=== PATIENT | female | born 1935 | race Caucasian/White ===

== ENCOUNTER 2018-02-11 09:28 | Emergency (ER) | payer MEDICARE, MEDICAID ==
[2018-02-11 10:03] VITALS: TEMP 97; O2SAT 98
[2018-02-11 11:00] LABS: BASO # 0.1 K/uL (0.0-0.2); BASO % 0.7 % (0.0-2.0); EOS # 0.3 K/uL (0.0-0.7); EOS % 3.2 % (0.0-4.0); HEMOGLOBIN 13.5 g/dL (12.0-16.0); LYMPH % 36.8 % (20.0-40.0); MEAN CELL VOLUME 87.7 fl (81.0-99.0); MEAN CORPUSCULAR HEMOGLOBIN 29.5 pg (27.0-31.0); MEAN CORPUSCULAR HGB CONC 33.6 g/dL (33.0-37.0); MEAN PLATELET VOLUME 9.3 fl (7.2-11.7); MONO # 0.4 K/uL (0.0-0.8); MONO % 5.6 % (0.0-10.0); NEUT # 4.3 K/uL (1.8-7.0); NEUT % 53.7 % (50.0-75.0); NRBC % 0.1 % (0.0-0.0); RBC 4.59 Mil/uL (3.80-5.20); RED CELL DISTRIBUTION WIDTH 14.4 % (11.5-14.5)
[2018-02-11 11:06] LABS: ALBUMIN 4.2 g/dL (3.5-5.0); ALT/SGPT 35 U/L (9-52); AST/SGOT 36 U/L (14-36); BLOOD UREA NITROGEN 11 mg/dl (7-17); CALCIUM 9.7 mg/dL (8.4-10.2); GFR AFRICAN-AMERICAN > 60; GFR NON-AFRICAN AMERICAN > 60; LIPASE 222 U/L (23-300)
--- NOTE | 2018-02-11 11:08 | ED PDOC ---
HPI:Nausea, Vomiting, Diarrhea Time Seen by Provider: 02/11/18 09:54 Chief Complaint (Nursing): GI Problem Chief Complaint (Provider): Nausea and Vomiting History Per: Patient History/Exam Limitations: no limitations Onset/Duration Of Symptoms: Days (x1 week) Current Symptoms Are (Timing): Constant Have you had recent travel within the past 21 days to any of the following countries: [place], [place], [place] or [place]?: No Severity: None Associated Symptoms: Nausea, Vomiting. denies: Diarrhea, Chest Pain, Urinary Symptoms Exacerbating Factors: None Alleviating Factors: None Additional Complaint(s): 82 year old female with a past medical history of hypertension presents to the emergency department complaining of constant nausea and vomiting x1 week. Patient reports that she vomited a few times throughout the week but denies any abdominal pain. She states that she has not taken any medications for relief of her symptoms. Denies urinary symptoms, constipation, chest pain, diarrhea, fever. Patient does not recall the name of her PMD Abnormal Vaginal Bleeding: No Past Medical History Reviewed: Historical Data, Nursing Documentation, Vital Signs Vital Signs: Last Vital Signs Temp 97.0 F L 02/11/18 10:01 Pulse 54 L 02/11/18 10:01 Resp 16 02/11/18 10:01 BP 147/73 02/11/18 10:01 Pulse Ox 98 02/11/18 10:01 - Medical History PMH: Alzheimer's Disease, Arthritis, HTN, Hypercholesterolemia, Osteoporosis - Surgical History Surgical History: No Surg Hx - Family History Family History: States: Unknown Family Hx - Social History Current smoker - smoking cessation education provided: No Ex-Smoker (has not smoked in the last 12 months): No Alcohol: None Drugs: Denies - Immunization History Hx Tetanus Toxoid Vaccination: No Hx Influenza Vaccination: No Hx Pneumococcal Vaccination: No - Home Medications Home Medications: Ambulatory Orders Medication Instructions Recorded Amoxicillin 500 mg PO BID #14 cap 03/21/15 Atorvastatin [Lipitor] 10 mg PO DAILY 03/21/15 Cholecalciferol (Vitamin D3) 1,000 iu PO DAILY 03/21/15 [Vitamin D] Ciprofloxacin/Dexamethasone 4 drop AD BID #1 bottle 03/21/15 [Ciprodex 0.3%-0.1% 7.5 Ml] Olwsk-6-Eves Ethyl Esters 1 GM 1 gm PO BID 03/21/15 [Lovaza] Valsartan [Diovan] 320 mg PO DAILY 03/21/15 Sulfamethoxazole/Trimethoprim 1 each PO BID #14 tablet 02/11/18 [Bactrim Ds Tablet] - Allergies Allergies/Adverse Reactions: Allergies Allergy/AdvReac Type Severity Reaction Status Date / Time No Known Allergies Allergy Verified 03/21/15 10:20 Review of Systems ROS Statement: Except As Marked, All Systems Reviewed And Found Negative Constitutional: Negative for: Fever Cardiovascular: Negative for: Chest Pain Gastrointestinal: Positive for: Nausea, Vomiting. Negative for: Abdominal Pain , Diarrhea, Constipation Musculoskeletal: Negative for: Back Pain Physical Exam - Reviewed Nursing Documentation Reviewed: Yes Vital Signs Reviewed: Yes - Physical Exam Appears: Positive for: Non-toxic, No Acute Distress Head Exam: Positive for: ATRAUMATIC, NORMAL INSPECTION, NORMOCEPHALIC Skin: Positive for: Normal Color, Warm, Dry. Negative for: Rash Eye Exam: Positive for: Normal appearance, EOMI, PERRL. Negative for: Nystagmus ENT: Positive for: Normal ENT Inspection. Negative for: Nasal Congestion, Tonsillar Exudate, Tonsillar Swelling Neck: Positive for: Normal, Painless ROM, Supple Cardiovascular/Chest: Positive for: Regular Rate, Rhythm, Chest Non Tender. Negative for: Tachycardia Respiratory: Positive for: Normal Breath Sounds. Negative for: Rales, Rhonchi, Wheezing, Respiratory Distress Gastrointestinal/Abdominal: Positive for: Bowel Sounds, Soft, Tenderness (mild epigastric tenderness). Negative for: Mass, Guarding, Rebound Back: Positive for: Normal Inspection. Negative for: L CVA Tenderness, R CVA Tenderness, Vertebral Tenderness Extremity: Positive for: Normal ROM. Negative for: Tenderness, Pedal Edema, Deformity, Swelling Neurologic/Psych: Positive for: Alert, Oriented, Gait. Negative for: Motor/ Sensory Deficits - Laboratory Results Result Diagrams: 02/11/18 10:45 02/11/18 10:45 - ECG O2 Sat by Pulse Oximetry: 98 (RA) Pulse Ox Interpretation: Normal - Progress Re-evaluation Time: 14:45 Condition: Re-examined, Improved Medical Decision Making Medical Decision Makin Initial Impression 82 year old female presenting with nausea and vomiting Differentials:Acute gatritis, colicystitis, pancreatitis, UTI, acute real failure, other conditions considered but not mentioned Initial Plan: * Cardiology * CMP * Lipase * Troponin * Udip * Upreg * CBC * Tylenol 650 mg PO * Urinalysis * Reevaluation 1337 PROCEDURE: CT Abdomen and Pelvis with contrast HISTORY: n/v epigastric pain COMPARISON: None. TECHNIQUE: Contrast dose: 95 cc Omnipaque 300 Radiation dose: Total exam DLP = 561.89 mGy-cm. This CT exam was performed using one or more of the following dose reduction techniques: Automated exposure control, adjustment of the mA and/or kV according to patient size, and/or use of iterative reconstruction technique. FINDINGS: LOWER THORAX: Minimal linear scar/atelectasis left lower lobe LIVER: Normal size, contour and attenuation. Nonspecific 6 mm low-density lesion left lobe of liver. No biliary dilatation. GALLBLADDER AND BILE DUCTS: Unremarkable. PANCREAS: Unremarkable. No gross lesion or ductal dilatation. SPLEEN: Unremarkable. ADRENALS: Unremarkable. No mass. KIDNEYS AND URETERS: Unremarkable. No hydronephrosis. No solid mass. VASCULATURE: Unremarkable. No aortic aneurysm. BOWEL: Unremarkable. No obstruction. No gross mural thickening. APPENDIX: Normal appendix. PERITONEUM: Unremarkable. No free fluid. No free air. LYMPH NODES: Unremarkable. No enlarged lymph nodes. BLADDER: Mild bladder wall thickening likely due to limited distention. REPRODUCTIVE: Unremarkable uterus. Prominent periuterine veins common nonspecific. BONES: No acute fracture. OTHER FINDINGS: None. IMPRESSION: No acute abnormality. Mild bladder wall thickening, likely artifact due to inadequate distention. Documented by Luciana Francisco acting as a scribe for Jenny Harris MD. All medical record entries made by the Scribe were at my direction and personally dictated by me. I have reviewed the chart and agree that the record accurately reflects my personal performance of the history, physical exam, medical decision making, and the department course for this patient. I have also personally directed, reviewed, and agree with the discharge instructions and disposition. Disposition - Clinical Impression Clinical Impression: UTI (urinary tract infection) - Patient ED Disposition Is Patient to be Admitted: No Doctor Will See Patient In The: Office Counseled Patient/Family Regarding: Studies Performed, Diagnosis, Need For Followup - Disposition Disposition: Routine/Home Disposition Time: 14:47 Condition: GOOD Additional Instructions: Follow up with your PCP in 2-3 days. Prescriptions: Sulfamethoxazole/Trimethoprim [Bactrim Ds Tablet] 1 each PO BID #14 tablet Instructions: Urinary Tract Infections in Adults Print Language: ALBANIAN
[2018-02-11 12:10] LABS: PH,URINE 5.5 (5.0-8.0); URINE BILIRUBIN NEGATIVE (NEGATIVE); URINE BLOOD TRACE (NEGATIVE); URINE CLARITY HAZY (Clear); URINE COLOR YELLOW (YELLOW); URINE GLUCOSE (UA) NEG (Normal); URINE LEUKOCYTE ESTERASE SMALL Leu/uL (Negative); URINE PROTEIN 30 mg/dL (NEGATIVE); URINE UROBILINOGEN 0.2 mg/dL (0.2-1.0)
[2018-02-11 12:29] LABS: URINE BACTERIA RARE (<OCC)
[2018-02-11] MEDS ORDERED: Iohexol 300 100 ML IJ ONE (12:37)
[2018-02-11] MEDS ORDERED: Sodium Chloride 0.9% 50 ML IV ONE (12:37)
--- NOTE | 2018-02-11 13:39 | CT ---
PROCEDURE: CT Abdomen and Pelvis with contrast HISTORY: n/v epigastric pain COMPARISON: None. TECHNIQUE: Contrast dose: 95 cc Omnipaque 300 Radiation dose: Total exam DLP = 561.89 mGy-cm. This CT exam was performed using one or more of the following dose reduction techniques: Automated exposure control, adjustment of the mA and/or kV according to patient size, and/or use of iterative reconstruction technique. FINDINGS: LOWER THORAX: Minimal linear scar/atelectasis left lower lobe LIVER: Normal size, contour and attenuation. Nonspecific 6 mm low-density lesion left lobe of liver. No biliary dilatation. GALLBLADDER AND BILE DUCTS: Unremarkable. PANCREAS: Unremarkable. No gross lesion or ductal dilatation. SPLEEN: Unremarkable. ADRENALS: Unremarkable. No mass. KIDNEYS AND URETERS: Unremarkable. No hydronephrosis. No solid mass. VASCULATURE: Unremarkable. No aortic aneurysm. BOWEL: Unremarkable. No obstruction. No gross mural thickening. APPENDIX: Normal appendix. PERITONEUM: Unremarkable. No free fluid. No free air. LYMPH NODES: Unremarkable. No enlarged lymph nodes. BLADDER: Mild bladder wall thickening likely due to limited distention. REPRODUCTIVE: Unremarkable uterus. Prominent periuterine veins common nonspecific. BONES: No acute fracture. OTHER FINDINGS: None. IMPRESSION: No acute abnormality. Mild bladder wall thickening, likely artifact due to inadequate distention.
[2018-02-11 14:48] VITALS: BP 147/69; PULSE 61; RESP 18
--- NOTE | 2018-02-12 09:46 | CARD ---
APPROVED REPORT EKG Measurement Heart [id number] <Conclusion> Sinus bradycardia Otherwise normal ECG
== END 2018-02-11 14:55 | disposition home or self-care (01) ==
LOC: H.ER 09:28
DX: N39.0 Urinary tract infection, site not specified (principal); E78.00 Pure hypercholesterolemia, unspecified; F02.80 Dementia in other diseases classified elsewhere, unspecified severity, without behavioral disturbance, psychotic disturbance, mood disturbance, and anxiety; G30.9 Alzheimer's disease, unspecified; I10 Essential (primary) hypertension; M81.0 Age-related osteoporosis without current pathological fracture
CPT/HCPCS: 74177; 80053; 81003; 83690; 84484; 85025; 93005; 99284; Q9967

== ENCOUNTER 2018-02-17 21:11 | Emergency (ER) | payer MEDICARE, MEDICAID ==
[2018-02-17 21:38] VITALS: TEMP 98.2
[2018-02-17] MEDS ORDERED: Sodium Chloride 0.9% 500 ML IV STA ×2 (22:44)
--- NOTE | 2018-02-17 22:46 | ED PDOC ---
HPI:Nausea, Vomiting, Diarrhea Time Seen by Provider: 02/17/18 21:50 Chief Complaint (Nursing): Dizziness/Lightheaded Chief Complaint (Provider): vomiting History Per: Family (daughter secondary to Alzheimer's) Associated Symptoms: Nausea, Vomiting, Loss Of Appetite. denies: Fever, Chills , Diarrhea Additional Complaint(s): Nausea and vomiting for 2 weeks, especially when she tries to eat. Abd pain only when she tries to eat or drink. Over last 3 days she is feeling dizzy and weak. Weight loss 6 lbs. No diarrhea. Minimal bowel movements due to not eating. Seen in this ER for same 1 week ago. No relief since then. PMD Gaudencio Lainez Past Medical History Reviewed: Historical Data, Nursing Documentation, Vital Signs Vital Signs: Last Vital Signs Temp 98.2 F 02/17/18 21:34 Pulse 60 02/17/18 21:34 Resp 18 02/17/18 21:34 BP 156/80 H 02/17/18 21:34 Pulse Ox 99 02/17/18 21:34 - Medical History PMH: Alzheimer's Disease, Arthritis, HTN, Hypercholesterolemia, Osteoporosis - Surgical History Surgical History: No Surg Hx - Family History Family History: States: No Known Family Hx - Social History Current smoker - smoking cessation education provided: No Alcohol: None Drugs: Denies - Immunization History Hx Tetanus Toxoid Vaccination: No Hx Influenza Vaccination: No Hx Pneumococcal Vaccination: No - Home Medications Home Medications: Ambulatory Orders Medication Instructions Recorded Amoxicillin 500 mg PO BID #14 cap 03/21/15 Atorvastatin [Lipitor] 10 mg PO DAILY 03/21/15 Cholecalciferol (Vitamin D3) 1,000 iu PO DAILY 03/21/15 [Vitamin D] Ciprofloxacin/Dexamethasone 4 drop AD BID #1 bottle 03/21/15 [Ciprodex 0.3%-0.1% 7.5 Ml] [id number]-[id number] Ethyl Esters 1 GM 1 gm PO BID 03/21/15 [Lovaza] Valsartan [Diovan] 320 mg PO DAILY 03/21/15 Sulfamethoxazole/Trimethoprim 1 each PO BID #14 tablet 02/11/18 [Bactrim Ds Tablet] Famotidine [Pepcid] 20 mg PO Q12 #14 tab 02/18/18 Meclizine [Antivert] 25 mg PO Q6 PRN #20 tab 02/18/18 Nitrofurantoin Macrocrystals 100 mg PO BID #14 cap 02/18/18 [Macrobid] Ondansetron ODT [Zofran ODT] 4 mg PO Q6 PRN #16 odt 02/18/18 - Allergies Allergies/Adverse Reactions: Allergies Allergy/AdvReac Type Severity Reaction Status Date / Time No Known Allergies Allergy Verified 02/17/18 21:34 Review of Systems ROS Statement: Except As Marked, All Systems Reviewed And Found Negative (and as per HPI) Constitutional: Positive for: Weakness, Malaise. Negative for: Fever Gastrointestinal: Positive for: Nausea, Vomiting, Abdominal Pain. Negative for : Diarrhea, Constipation, Hematochezia, Hematemesis Neurological: Positive for: Dizziness. Negative for: Weakness, Numbness Physical Exam - Reviewed Nursing Documentation Reviewed: Yes Vital Signs Reviewed: Yes - Physical Exam Appears: Positive for: Non-toxic, No Acute Distress Head Exam: Positive for: ATRAUMATIC, NORMOCEPHALIC Skin: Positive for: Warm, Dry Eye Exam: Positive for: EOMI, PERRL ENT: Negative for: Pharyngeal Erythema, Tonsillar Exudate Neck: Positive for: Painless ROM, Supple Cardiovascular/Chest: Positive for: Regular Rate, Rhythm. Negative for: Murmur Respiratory: Positive for: Normal Breath Sounds. Negative for: Wheezing Gastrointestinal/Abdominal: Positive for: Soft. Negative for: Tenderness, Mass , Distended, Guarding, Rebound Back: Positive for: Normal Inspection. Negative for: Decreased ROM Extremity: Positive for: Normal ROM. Negative for: Deformity - Laboratory Results Result Diagrams: 02/17/18 22:47 02/17/18 22:47 - ECG O2 Sat by Pulse Oximetry: 99 Disposition - Clinical Impression Clinical Impression: Vertigo, UTI (urinary tract infection) - Patient ED Disposition Is Patient to be Admitted: Transfer of Care Counseled Patient/Family Regarding: Studies Performed, Diagnosis - Disposition Disposition: Transfer of Care Disposition Time: 00:00 Condition: STABLE Prescriptions: Famotidine [Pepcid] 20 mg PO Q12 #14 tab Meclizine [Antivert] 25 mg PO Q6 PRN #20 tab PRN Reason: Dizziness Nitrofurantoin Macrocrystals [Macrobid] 100 mg PO BID #14 cap Ondansetron ODT [Zofran ODT] 4 mg PO Q6 PRN #16 odt PRN Reason: Nausea/Vomiting Instructions: Vertigo (a Type of Dizziness), Urinary Tract Infections in Adults Forms: [facility] (Algerian) Print Language: TELUGU Patient Signed Over To: Patel Frankel Handoff Comments: pending Ct results and final disposition
[2018-02-17 22:53] LABS: BASO % 0.5 % (0.0-2.0); EOS # 0.2 K/uL (0.0-0.7); EOS % 2.6 % (0.0-4.0); HEMOGLOBIN 13.3 g/dL (12.0-16.0); LYMPH # 3.1 K/uL (1.0-4.3); MEAN CORPUSCULAR HEMOGLOBIN 29.4 pg (27.0-31.0); MEAN CORPUSCULAR HGB CONC 33.8 g/dL (33.0-37.0); MEAN PLATELET VOLUME 9.4 fl (7.2-11.7); MONO # 0.5 K/uL (0.0-0.8); MONO % 5.7 % (0.0-10.0); NEUT # 4.8 K/uL (1.8-7.0); NEUT % 55.2 % (50.0-75.0); RBC 4.51 Mil/uL (3.80-5.20); RED CELL DISTRIBUTION WIDTH 14.3 % (11.5-14.5); WHITE BLOOD COUNT 8.7 K/uL (4.8-10.8)
[2018-02-17 22:58] LABS: PROTHROMBIN TIME 14.2 Seconds (9.8-13.1)
[2018-02-17 22:59] LABS: INR 1.3 (0.9-1.2)
[2018-02-17 23:07] LABS: ALB/GLOB RATIO 1.2 (1.0-2.1); ALBUMIN 4.5 g/dL (3.5-5.0); ALT/SGPT 36 U/L (9-52); AST/SGOT 38 U/L (14-36); BLOOD UREA NITROGEN 17 mg/dl (7-17); GFR AFRICAN-AMERICAN 52; GFR NON-AFRICAN AMERICAN 43; LIPASE 186 U/L (23-300)
[2018-02-17] MEDS ORDERED: Famotidine 20mg/50ml Premix IVPB STA (23:27)
[2018-02-17 23:37] LABS: SQUAMOUS EPITHIAL 2 /hpf (0-5); URINE BILIRUBIN NEGATIVE (NEGATIVE); URINE BLOOD NEGATIVE (NEGATIVE); URINE CLARITY SLIGHTY-CLOUDY (Clear); URINE COLOR YELLOW (YELLOW); URINE GLUCOSE (UA) NEG (Normal); URINE LEUKOCYTE ESTERASE MOD Leu/uL (Negative); URINE PROTEIN 30 mg/dL (NEGATIVE); URINE UROBILINOGEN 0.2-1.0 mg/dL (0.2-1.0)
[2018-02-17] MEDS ORDERED: Famotidine 20mg/50ml 20 MG/50 ML BAG IVPB ONE (23:58)
[2018-02-18] MEDS ORDERED: cefTRIAXone (Rocephin) 1 gm Inj ONE (00:10)
--- NOTE | 2018-02-18 00:33 | ED PDOC ---
Syncope/Near Syncope/Dizziness Time Seen by Provider: 02/17/18 21:50 Chief Complaint (Nursing): Dizziness/Lightheaded Past Medical History Vital Signs: Last Vital Signs Temp 98.2 F 02/17/18 21:34 Pulse 60 02/17/18 21:34 Resp 18 02/17/18 21:34 BP 156/80 H 02/17/18 21:34 Pulse Ox 99 02/18/18 00:03 - Medical History PMH: Alzheimer's Disease, Arthritis, HTN, Hypercholesterolemia, Osteoporosis - Surgical History Surgical History: No Surg Hx - Family History Family History: States: No Known Family Hx, Unknown Family Hx - Social History Current smoker - smoking cessation education provided: No Alcohol: None Drugs: Denies - Immunization History Hx Tetanus Toxoid Vaccination: No Hx Influenza Vaccination: No Hx Pneumococcal Vaccination: No - Home Medications Home Medications: Ambulatory Orders Medication Instructions Recorded Amoxicillin 500 mg PO BID #14 cap 03/21/15 Atorvastatin [Lipitor] 10 mg PO DAILY 03/21/15 Cholecalciferol (Vitamin D3) 1,000 iu PO DAILY 03/21/15 [Vitamin D] Ciprofloxacin/Dexamethasone 4 drop AD BID #1 bottle 03/21/15 [Ciprodex 0.3%-0.1% 7.5 Ml] [id number]-9-Iyeg Ethyl Esters 1 GM 1 gm PO BID 03/21/15 [Lovaza] Valsartan [Diovan] 320 mg PO DAILY 03/21/15 Sulfamethoxazole/Trimethoprim 1 each PO BID #14 tablet 02/11/18 [Bactrim Ds Tablet] - Allergies Allergies/Adverse Reactions: Allergies Allergy/AdvReac Type Severity Reaction Status Date / Time No Known Allergies Allergy Verified 02/17/18 21:34 - Laboratory Results Result Diagrams: 02/17/18 22:47 02/17/18 22:47 - ECG O2 Sat by Pulse Oximetry: 99 Medical Decision Making Medical Decision Making: Time: 00:00 Transfer of care endorsed to ut by Dr. Tariq pending CT and final disposition. Disposition - Disposition Disposition: Transfer of Care Disposition Time: 00:00 Forms: [employer] (Stateless)
--- NOTE | 2018-02-18 00:49 | ED PDOC ---
- Laboratory Results Result Diagrams: 02/17/18 22:47 02/17/18 22:47 - ECG O2 Sat by Pulse Oximetry: 99 (RA) Pulse Ox Interpretation: Normal Medical Decision Making Medical Decision Makin:00 --Patient's care transferred to [facility] pending Ct and final disposition. CT FINDINGS: Brain: There are areas of periventricular and deep white matter hypoattenuation , nonspecific but most likely related to chronic small vessel ischemic changes. No hemorrhage. Ventricles: There is symmetric prominence of the ventricles and sulci, compatible with ageappropriate cerebral atrophy. Bones/joints: Unremarkable. No acute fracture. Soft tissues: Unremarkable. Sinuses: Air-fluid levels in the bilateral sphenoid sinuses. Mastoid air cells: Unremarkable as visualized. No mastoid effusion. IMPRESSION: 1. No acute intracranial pathology. Age-appropriate volume loss. Nonspecific white matter changes likely related to microvascular changes. 2. Sinus disease as described above. Time: 01:23 --Labs were reviewed and reveal no clinically significant abnormalities. --Patient reports improvement in symptoms and is stable for discharge. Diagnosis is vertigo and UTI. Patient will follow up with [facility]. ---- Scribe Attestation: Documented by Elsy Russell, acting as a scribe for Patel Frankel MD Provider Scribe Attestation: All medical record entries made by the Scribe were at my direction and personally dictated by me. I have reviewed the chart and agree that the record accurately reflects my personal performance of the history, physical exam, medical decision making, and the department course for this patient. I have also personally directed, reviewed, and agree with the discharge instructions and disposition. Disposition - Clinical Impression Clinical Impression: Vertigo, UTI (urinary tract infection) - POA Present On Arrival: None - Disposition Disposition: Routine/Home Disposition Time: 01:25 Condition: STABLE Additional Instructions: BELEN JEFFERSON, thank you for letting us take care of you today. Your provider was Patel Frankel MD and you were treated for DIZZINESS, VOMITING. The emergency medical care you received today was directed at your acute symptoms. If you were prescribed any medication, please fill it and take as directed. It may take several days for your symptoms to resolve. Return to the Emergency Department if your symptoms worsen, do not improve, or if you have any other problems. Please contact your doctor or call one of the physicians/clinics you have been referred to that are listed on the Patient Visit Information form that is included in your discharge packet. Bring any paperwork you were given at discharge with you along with any medications you are taking to your follow up visit. Our treatment cannot replace ongoing medical care by a primary care provider outside of the emergency department. Thank you for allowing the [facility] team to be part of your care today. If you had an X-Ray or CT scan: A Radiologist will review the ED reading if any change in treatment is needed we will contact you. If you had a blood, urine, or wound culture: It will take several days for the results, if any change in treatment is needed we will contact you. If you had an STI test: It will take 48 hours for the results. Please call after 1 week if you have not heard back. Prescriptions: Famotidine [Pepcid] 20 mg PO Q12 #14 tab Meclizine [Antivert] 25 mg PO Q6 PRN #20 tab PRN Reason: Dizziness Nitrofurantoin Macrocrystals [Macrobid] 100 mg PO BID #14 cap Ondansetron ODT [Zofran ODT] 4 mg PO Q6 PRN #16 odt PRN Reason: Nausea/Vomiting Instructions: Vertigo (a Type of Dizziness), Urinary Tract Infections in Adults Forms: [employer] (Lebanese) Print Language: BELARUSIAN
[2018-02-18 01:23] VITALS: BP 127/55; PULSE 58; RESP 16
[2018-02-18 01:25] VITALS: O2SAT 99
--- NOTE | 2018-02-18 10:49 | CT ---
PROCEDURE: CT scan brain dated 02/17/2018 HISTORY: dizziness headache vomiting COMPARISON: Comparison made with CT scan of the internal auditory canals dated 03/21/2015. . TECHNIQUE: Axial computed tomography images were obtained through the head/brain without intravenous contrast. Radiation dose: Total exam DLP = 1886.75 mGy-cm. This CT exam was performed using one or more of the following dose reduction techniques: Automated exposure control, adjustment of the mA and/or kV according to patient size, and/or use of iterative reconstruction technique. FINDINGS: HEMORRHAGE: No acute parenchymal, subarachnoid nor extra-axial hemorrhage. BRAIN: Mild chronic periventricular white matter ischemic changes seen extending peripherally into the deep and to a lesser degree subcortical white matter both cerebral hemispheres. No evidence of large acute infarct. Moderate generalized volume loss. Note made of a small approximately 6.9 mm elliptical shaped extra-axial calcification in the right superior frontal region with what may represent some minimal adjacent soft tissue density. Findings could represent a an incidental tiny meningioma. VENTRICLES: No obstructive hydrocephalus. CALVARIUM: There are no acute calvarial fracture seen. PARANASAL SINUSES: Unremarkable as visualized. No significant inflammatory changes. MASTOID AIR CELLS: Mucoperiosteal inflammatory changes are present both maxillary antra OTHER FINDINGS: None. IMPRESSION: No acute intracranial hemorrhage. Mild chronic white matter ischemic changes. Moderate volume loss. Possible possible incidental small right frontal meningioma.
--- NOTE | 2018-02-18 12:07 | CARD ---
APPROVED REPORT EKG Measurement Heart [id number] <Conclusion> Junctional rhythm Abnormal ECG
== END 2018-02-18 02:18 | disposition home or self-care (01) ==
LOC: H.ER 21:11
DX: N39.0 Urinary tract infection, site not specified (principal); R42 Dizziness and giddiness
CPT/HCPCS: 70450; 80053; 81003; 82948; 83605; 83690; 83735; 84100; 84484; 85025; 85610; 85730; 93005; 96361; 96365; 96367; 96375; 99285; J0696; J2405; J7030